=== PATIENT | female | born 1945 | race Asian ===

== ENCOUNTER → 2024-12-02 | Outpatient (CLI) | payer MEDICARE, MEDICAID, SELFPAY ==
[2024-12-02 09:36] LABS: Basophils % (Auto) 1 % (0-2.5); Eosinophils # (Auto) 0.2 Thou/mm3 (0.0-0.5); Eosinophils % (Auto) 4 % (0-10); Hematocrit 47.4 % (36.0-46.0); Hemoglobin 15.8 g/dL (12.0-16.0); Immature Granulocytes % (Auto) 0 % (0-0); Immature Granulocytes Auto 0.01 Thou/mm3 (0.00-0.00); Lymphocytes # (Auto) 1.5 Thou/mm3 (1.0-4.8); Lymphocytes % (Auto) 27 % (10-50); Mean Corpuscular HGB Conc 33.3 g/dl (31.0-37.0); Mean Corpuscular Hemoglobin 30.4 pg (25.0-35.0); Mean Corpuscular Volume 91 fL (80-100); Monocytes # (Auto) 0.3 Thou/mm3 (0.0-0.8); Monocytes % (Auto) 6 % (0-12); Neutrophils # (Auto) 3.3 Thou/mm3 (1.8-7.7); Neutrophils % (Auto) 62 % (37-80); Nucleated Red Blood Cell % 0 /100 WBC (0); Platelet Count 143 Thou/mm3 (140-440); RDW Standard Deviation 44.9 fL (36.4-46.3); Red Blood Count 5.19 Miln/mm3 (4.00-5.20); White Blood Count 5.3 Thou/mm3 (3.6-11.0)
[2024-12-02 09:39] LABS: Glucose Estimated Average 114 mg/dL (80-131); Hemoglobin A1C 5.6 % Hgb (4.8-6.0)
[2024-12-02 09:57] LABS: Alanine Aminotransferase 16 U/L (10-49); Albumin, Serum 4.1 gm/dL (3.4-4.8); Alkaline Phosphatase 135 U/L (46-116); Anion Gap 8 (7-16); Aspartate Amino Transferase 34 U/L (0-34); BUN/Creatinine Ratio 26 Ratio (12-20); Bilirubin,Total 2.9 mg/dL (0.3-1.2); Blood Urea Nitrogen 21 mg/dL (9-23); Calcium 10.8 mg/dL (8.3-10.6); Calcium (Corrected) 10.8 mg/dL (8.5-10.1); Carbon Dioxide 29.3 mMol/L (20.0-31.0); Chloride 104 mMol/L (98-107); Creatinine (Component) 0.8 mg/dL (0.6-1.3); Free T4 (Free Thyroxine) 1.32 ng/dL (0.89-1.76); Globulin 4.1 gm/dL (2.3-3.5); Glucose 90 mg/dL (74-106); Osmolality,Calculated 284 (275-295); Potassium 4.5 mMol/L (3.4-5.1); Sodium 141 mMol/L (136-145); Thyroid Stimulating Hormone 0.94 uIU/mL (0.55-4.78); Total Protein 8.2 gm/dL (5.7-8.2); eGFR > 60 See Note
[2024-12-02 10:11] LABS: Cardiac Risk Estimate 3.2 RATIO (3.7-5.6); Cholesterol 175 mg/dL (132-200); HDL Cholesterol 54 mg/dL (40-60); LDL Cholesterol,Calculated 108 mg/dL (0-130); Triglycerides 67 mg/dL (30-150)
[2024-12-02 10:23] LABS: Vitamin D 25 Hydroxy Total 52.5 ng/mL (7.3-40.2)
== END | disposition home or self-care (01) ==
LOC: COPL 08:36
PROVIDERS: PCP Internal Medicine; Referring Provider Internal Medicine; Visit Provider Internal Medicine
DX: I11.0 Hypertensive heart disease with heart failure (principal); E11.9 Type 2 diabetes mellitus without complications; E55.9 Vitamin D deficiency, unspecified; E78.2 Mixed hyperlipidemia; E03.9 Hypothyroidism, unspecified
CPT/HCPCS: 36415; 80053; 80061; 82306; 83036; 84439; 84443; 85025

== ENCOUNTER 2025-06-03 10:59 | Emergency (ER) | payer MEDICARE, MEDICAID, SELFPAY ==
[2025-06-03 11:00] VITALS: BMI 24.9
[2025-06-03 11:21] VITALS: BP 132/86; PULSE 101; RESP 17; TEMP 37.1; O2SAT 98; BMI 20.9
--- NOTE | 2025-06-03 11:31 | EKG_ITS ---
[facility] Test Date: 2025-06-03 Pat Name: TANNER BURROUGHS Department: Room: - Gender: Female Mail Technician: : 1945 Requested By: Aisah Núñez Order Number: [id number] Reading MD: Aisha Núñez Measurements Intervals [place] Rate: 85 P: [place]: QRS: 42 QRSD: 120 T: -18 QT: 380 QTc: 454 Interpretive Statements ATRIAL FIBRILLATION RIGHT BUNDLE BRANCH BLOCK [120+ ms QRS DURATION, UPRIGHT V1, 40+ ms S IN I/aVL/V4/V5/V6] Compared to ECG 11/25/2023 10:41:27 T-wave abnormality no longer present Possible ischemia no longer present /store/S0/[id number]/ecg/[id number].pdf
--- NOTE | 2025-06-03 11:31 | PD.EDDENTL ---
ED Dental RME/HPI General Chief complaint: Dental/Oral/Throat Stated complaint: TOOTH EXTRACTION SITE BLEEDING X LAST NIGHT Time Seen by Provider: 06/03/25 11:29 Arrival date/time: 06/03/25 10:59 RME / HPI RME / HPI Narrative: 79-year-old female patient with significant history of chronic A-fib, hypertension, came in for evaluation regarding dental bleeding. Onset of symptoms since last night as continues dental oral bleeding. Severity moderate. Patient had a tooth extraction about 2 weeks ago bleeding eventually stopped until last night. Patient restarted her Eliquis 10 mg daily for the last 3 days. Patient now complaining of dizziness. Denies any other complaints no medication was taken prior to ER visit. Related Data Home Medications ?Medication ?Instructions ?Recorded ?Confirmed albuterol sulfate 2 mg/5 mL oral 5 ml PO Q8HR ##0 08/23/14 11/25/23 syrup allopurinol 300 mg tablet 300 mg PO EVERYOTHERDAY 11/25/23 11/25/23 atenolol 25 mg tablet 25 mg PO QDAY 11/25/23 11/25/23 kiejscyp-lhko-aljb 8 mg-folic 400 1 tab PO QDAY 11/25/23 11/25/23 mcg-K 50 mcg-lutein 300 mcg tablet (Centrum Silver Women) rivaroxaban 10 mg tablet (Xarelto) 10 mg PO QDAY 11/25/23 11/25/23 Allergies Allergy/AdvReac Type Severity Reaction Status Date / Time No Known Allergies Allergy Verified 06/03/25 11:04 Review of Systems Review of Systems Narrative Review of Systems: Review of system reviewed and within normal limits except mentioned in HPI ED Exam Narrative Physical exam: VITAL SIGNS: Reviewed. GENERAL APPEARANCE: Alert and interactive, follows commands, no acute distress, HEAD AND FACE: Non-traumatic. ENT: PERRL, pale conjunctiva, eyelid no trauma, Mucous membrane moist. Significant bleeding on the left upper premolar area status post traction NECK: Supple, nontender, no nuchal rigidity. CHEST: No tenderness, no crepitus, no paradoxical movement, no retractions. LUNGS: Clear, well ventilated, symmetric, no rales, no wheezing, no ronchi, no stridor, good breath sounds bilaterally. HEART: Regular rate, regular rhythm, no murmur, no gallops. ABDOMEN: Soft, positive bowel sounds, nondistended, no guarding, nontender, no rebound, no masses, RECTAL: Deferred. GENITAL: Deferred. NEUROLOGICAL: Gross motor function intact sensory function intact, Appropriate for age. MUSCULOSKELETAL: low back nontender, full range of motion. EXTREMITIES: Nontender, full range of motion. SKIN: Color pink, dry, no rash, no lacerations, no abrasions, no contusions. LYMPHATICS: Deferred. Course Quality Measures none Orders Category Date Time Status EKG (ED ONLY) *Do not use* NOW Care 06/03/25 11:31 Completed EKG (ED Only) Stat Exams 06/03/25 11:31 Draft CBC Stat Lab 06/03/25 12:06 Completed Comprehensive Metabolic Panel Stat Lab 06/03/25 12:06 Completed Partial Thromboplastin Time Stat Lab 06/03/25 12:21 Completed Prothrombin Time with INR Stat Lab 06/03/25 12:21 Completed Troponin I Stat Lab 06/03/25 12:06 Completed Type and Screen Stat Lab 06/03/25 12:21 Results Urinalysis, C/S if Indicated Stat Lab 06/03/25 11:30 Ordered Vital Signs Vital signs: Vital Signs Temperature 98.8 F 06/03/25 11:21 Pulse Rate 101 H 06/03/25 11:21 Respiratory Rate 17 06/03/25 11:21 Blood Pressure 132/86 H 06/03/25 11:21 Pulse Oximetry (%) 98 06/03/25 11:21 Oxygen Delivery Method Room Air 06/03/25 11:21 Dental / Oral MDM Narrative MDM Narrative:: 79-year-old female patient with significant history of chronic A-fib, hypertension, came in for evaluation regarding dental bleeding. Onset of symptoms since last night as continues dental oral bleeding. Severity moderate. Patient had a tooth extraction about 2 weeks ago bleeding eventually stopped until last night. Patient restarted her Eliquis 10 mg daily for the last 3 days. Patient now complaining of dizziness. Denies any other complaints no medication was taken prior to ER visit. Patient CBC came back unremarkable PT PTT also came back unremarkable. Results discussed with the family. Patient dental bleeding is completely controlled no more active bleeding after patient bit on Surgicel with gauze. On multiple reevaluation no recurrence of bleeding noted. Patient stable for discharge home I told her not to take her Eliquis for 3 days or until she will talk to her PCP. Patient is currently stable for discharge home. Patient data External records reviewed:: None Clinical information provided by:: patient and family Social determinants that could affect healthcare access:: none Patient has the following chronic illnesses:: History of chronic A-fib hypertension How is presenting disease/condition affected by chronic disease/condition?: caused by Evaluation data The following diagnostics were reviewed and interpreted by me:: lab results and EKG tracing(s) Lab and/or radiology exams considered but not ordered:: None Interpretation Summary: See results MDM Medications / Prescriptions Medications or Prescriptions considered but not ordered:: None Medication administrations:: None Consultations Consultation(s) initiated? (list below): No Diagnosis Dental Differential Diagnosis: dental caries and other (Dental bleeding status post tooth extraction) Most likely diagnosis given after review of the tests above:: Dental bleeding status post tooth extraction Admission Indicated Admission indicated?: not indicated Admission Request Was there a request for admission?: No Disposition Plan Disposition Plan: Discharge Discharge Attestation Discharge Attestation: The patient and all family members were given an opportunity to ask questions and understood the discharge instructions. Discharge instructions specifically effects, indications for sooner follow up or return to the emergency department, and the expected course of current diagnosis. Patient condition: Stable Discharge Plan Plan Patient Disposition: HOME (Self Care) Discharge Disposition comment: Stable Prescriptions/Referrals Prescriptions/Med Rec: No Action albuterol sulfate 2 MG/5 ML syrup 5 ml PO Q8HR Qty: 0 atenolol 25 mg tablet 25 mg PO QDAY allopurinol 300 mg tablet 300 mg PO EVERYOTHERDAY Centrum Silver Women 8 mg iron-400 mcg-50 mcg Tablet 1 tab PO QDAY Xarelto 10 mg tablet 10 mg PO QDAY Referrals: Sav Ace MD [Primary Care Provider, Internal Medicine] - In 1 week Problem List Clinical Impression: Surgical wound hemorrhage after dental procedure Patient/Caregiver Discharge Instructions Discharge Activity: activity as tolerated Education Materials: ED Post Op Wound Check, Bleeding Additional Instructions: Thank you for the opportunity for serving you today. You are stable for discharged . You are advised to: Follow-up with your PCP in 1 to 2 days Return to ED for worsening of symptoms Increase oral fluids Take medication as prescribed Your CBC today did not show any sign of anemia. Please stop taking Eliquis for the next 3 days until you are told by your PCP to resume it. Please do not eat or drink hot food. Print Language: ximena messina) Stand Alone Forms: [employer]o Award Info., Patient Portal Info Letter
[2025-06-03 12:31] LABS: Basophils # (Auto) 0.1 Thou/mm3 (0.0-0.2); Basophils % (Auto) 1 % (0-2.5); Eosinophils # (Auto) 0.1 Thou/mm3 (0.0-0.5); Eosinophils % (Auto) 1 % (0-10); Hematocrit 43.1 % (36.0-46.0); Hemoglobin 13.9 g/dL (12.0-16.0); Immature Granulocytes Auto 0.01 Thou/mm3 (0.00-0.00); Lymphocytes # (Auto) 1.6 Thou/mm3 (1.0-4.8); Lymphocytes % (Auto) 23 % (10-50); Mean Corpuscular HGB Conc 32.3 g/dl (31.0-37.0); Mean Corpuscular Hemoglobin 30.3 pg (25.0-35.0); Mean Corpuscular Volume 94 fL (80-100); Monocytes # (Auto) 0.3 Thou/mm3 (0.0-0.8); Monocytes % (Auto) 5 % (0-12); Neutrophils # (Auto) 5.0 Thou/mm3 (1.8-7.7); Neutrophils % (Auto) 71 % (37-80); Nucleated Red Blood Cell # 0.00 Thou/mm3 (0.00-0.00); Nucleated Red Blood Cell % 0 /100 WBC (0); Platelet Count 184 Thou/mm3 (140-440); RDW Standard Deviation 40.8 fL (36.4-46.3); Red Blood Count 4.59 Miln/mm3 (4.00-5.20); White Blood Count 7.1 Thou/mm3 (3.6-11.0)
[2025-06-03 12:42] LABS: INR 1.3 (0.9-1.3); Partial Thromboplastin Time 35.0 Seconds (22.0-36.0); Prothrombin Time 13.5 Seconds (9.0-12.2)
[2025-06-03 12:49] LABS: Alanine Aminotransferase 16 U/L (10-49); Albumin, Serum 4.5 gm/dL (3.4-4.8); Alkaline Phosphatase 104 U/L (46-116); Anion Gap 10 (7-16); BUN/Creatinine Ratio 16 Ratio (12-20); Blood Urea Nitrogen 16 mg/dL (9-23); Calcium 10.5 mg/dL (8.3-10.6); Calcium (Corrected) 10.5 mg/dL (8.5-10.1); Carbon Dioxide 26.0 mMol/L (20.0-31.0); Chloride 104 mMol/L (98-107); Creatinine (Component) 1.0 mg/dL (0.6-1.3); Estimated Creatinine Clearance 43.8 mL/min (>60); Glucose 115 mg/dL (74-106); Osmolality,Calculated 281 (275-295); Potassium 5.1 mMol/L (3.4-5.1); Sodium 140 mMol/L (136-145); Troponin I < 0.020 ng/mL (0.0-0.045); eGFR 57 See Note
[2025-06-03 12:50] LABS: Albumin/Globulin Ratio 1.2 (1.2-2.2); Aspartate Amino Transferase 43 U/L (0-34); Bilirubin,Total 0.8 mg/dL (0.3-1.2); Globulin 3.8 gm/dL (2.3-3.5); Total Protein 8.3 gm/dL (5.7-8.2)
[2025-06-03 13:51] VITALS: BP 128/73; PULSE 79; RESP 19; O2SAT 98
== END 2025-06-03 13:52 | disposition home or self-care (01) ==
PROVIDERS: Nurse Practitioner Family; Emergency Provider Family Medicine; PCP Internal Medicine
DX: K91.840 Postprocedural hemorrhage of a digestive system organ or structure following a digestive system procedure (principal); I10 Essential (primary) hypertension; I48.20 Chronic atrial fibrillation, unspecified; Z79.01 Long term (current) use of anticoagulants; Y84.8 Other medical procedures as the cause of abnormal reaction of the patient, or of later complication, without mention of misadventure at the time of the procedure
CPT/HCPCS: 36415; 80053; 81001; 84484; 85025; 85610; 85730; 86850; 86900; 86901; 93005; 99283